=== PATIENT | male | born 2000 | race African-American/Black ===

== ENCOUNTER 2022-08-19 10:55 | Inpatient (IN) | payer OTHER ==
[~2022-08-19] VITALS: Ht 172.7 cm; Wt 75.0 kg
[2022-08-19 11:54] LABS: HEMATOCRIT 46.2 % (42.0-52.0); HEMOGLOBIN 15.5 g/dl (13.5-17.5); MEAN CORPUSCULAR HEMOGLOBIN 28.2 pg (27.0-33.0); MEAN CORPUSCULAR HGB CONC 33.5 g/dl (32.0-36.5); PLATELET COUNT, AUTOMATED 144 10^3/uL (150-450)
[2022-08-19 11:56] LABS: WHITE BLOOD COUNT 3.2 10^3/uL (4.0-10.0)
[2022-08-19 12:19] LABS: ETHYL ALCOHOL (ETHANOL) 0.005 % (0.000-0.010)
[2022-08-19 12:20] LABS: ACETAMINOPHEN LEVEL < 2.0 UG/ML (10.0-20.0); BLOOD UREA NITROGEN 8 MG/DL (9-23); CALCIUM LEVEL 9.5 MG/DL (8.5-10.1); CARBON DIOXIDE LEVEL 28 MMOL/L (20-31); CHLORIDE LEVEL 103 MMOL/L (98-107); CREATININE FOR GFR 0.87 MG/DL (0.70-1.30); GLOMERULAR FILTRATION RATE > 60.0 (>60); GLUCOSE, FASTING 86 MG/DL (60-100); POTASSIUM SERUM 4.3 MMOL/L (3.5-5.1); SALICYLATE LEVEL < 3.0 MG/DL (<30); SODIUM LEVEL 139 MMOL/L (136-145)
[2022-08-19 13:03] LABS: ALBUMIN 4.4 G/DL (3.2-5.2); ALKALINE PHOSPHATASE 81 U/L (46-116); ALT/SGPT 16 U/L (7.0-40); AST/SGOT 26 U/L (<34); BILIRUBIN,DIRECT 0.2 MG/DL (<0.4); BILIRUBIN,TOTAL 0.6 MG/DL (0.3-1.2); TOTAL PROTEIN 7.4 G/DL (5.7-8.2)
[2022-08-19 14:21] LABS: AMPHETAMINES LEVEL URINE NEGATIVE (NEGATIVE); BARBITURATES URINE NEGATIVE (NEGATIVE); BENZODIAZEPINES URINE NEGATIVE (NEGATIVE); CANNABINOIDS URINE NEGATIVE (NEGATIVE); COCAINE METABOLITE URINE NEGATIVE (NEGATIVE); METHADONE URINE NEGATIVE (NEGATIVE); OPIATES URINE NEGATIVE (NEGATIVE); PHENCYCLIDINE URINE NEGATIVE (NEGATIVE)
[2022-08-19] MEDS ORDERED: HOME MED LIST COMPLETE! XX SCH (14:25)
[2022-08-19] MEDS ORDERED: NICOTINE 21MG/24HR 1 EA TRANSDERMAL TD ONE (18:10)
[2022-08-20] MEDS: NICOTINE 21MG/24HR 1 EA TRANSDERMAL TD SCH (09:00)
[2022-08-20] MEDS ORDERED: traZODone 50 MG TAB PO PRN (11:05)
[2022-08-20] MEDS ORDERED: IBUPROFEN 400MG TAB PO PRN (11:05)
[2022-08-20] MEDS ORDERED: MAALOX 30 ML SUSP *UDC PO PRN (11:05)
[2022-08-20] MEDS ORDERED: MOM 30ML SUSPENSION UDC PO PRN (11:05)
[2022-08-20 14:33] VITALS: BP 118/75
[2022-08-21 06:29] VITALS: BP 129/61
[2022-08-21] MEDS: NICOTINE 21MG/24HR 1 EA TRANSDERMAL TD SCH ×2 (09:00→14:35)
[2022-08-21] MEDS ORDERED: lamoTRIgine 25MG TAB PO ONE (14:35)
[2022-08-21 17:38] VITALS: BP 125/78
[2022-08-22 06:37] VITALS: BP 128/61
[2022-08-22] MEDS: NICOTINE 21MG/24HR 1 EA TRANSDERMAL TD SCH (09:09)
[2022-08-22] MEDS: lamoTRIgine 25MG TAB PO SCH (09:09)
[2022-08-22] MEDS ORDERED: HYDR-3363 PO (12:12)
[2022-08-22] MEDS ORDERED: NICO21PAT TD (12:12)
[2022-08-22] MEDS ORDERED: LAMI25TA PO (12:12)
[2022-08-22] MEDS ORDERED: TRAZ-252 PO (12:12)
[2022-08-22 18:17] VITALS: BP 152/72
[2022-08-23 06:43] VITALS: BP 136/64
[2022-08-23] MEDS: NICOTINE 21MG/24HR 1 EA TRANSDERMAL TD SCH (09:00)
[2022-08-23] MEDS: lamoTRIgine 25MG TAB PO SCH (09:08)
== END 2022-08-23 13:05 | disposition home or self-care (01) | DRG 885 ==
LOC: EDBD 10:55 → M ED 10:55 → M ED INP 08-20 11:04 → M PSY 08-20 15:18
PROVIDERS: ADMIT Student in an Organized Health Care Education/Training Program; ATTEND Psychiatry & Neurology Psychiatry
DX: F31.81 Bipolar II disorder (principal); R45.851 Suicidal ideations; F10.10 Alcohol abuse, uncomplicated; F41.9 Anxiety disorder, unspecified; Z81.8 Family history of other mental and behavioral disorders; Z91.51 Personal history of suicidal behavior

== ENCOUNTER 2023-06-18 13:48 | Inpatient (IN) | payer OTHER ==
[~2023-06-18] VITALS: Ht 172.7 cm; Wt 77.3 kg
[~2023-06-18 13:48] MED LIST: HYDR-3363 PO; LAMI25TA PO; NICO21PAT TD; TRAZ-252 PO
[2023-06-18 15:23] LABS: HEMATOCRIT 46.6 % (42.0-52.0); HEMOGLOBIN 15.9 g/dl (13.5-17.5); MEAN CORPUSCULAR HEMOGLOBIN 28.2 pg (27.0-33.0); MEAN CORPUSCULAR HGB CONC 34.1 g/dl (32.0-36.5); MEAN CORPUSCULAR VOLUME 82.6 fl (80.0-96.0); PLATELET COUNT, AUTOMATED 147 10^3/uL (150-450); RED BLOOD COUNT 5.64 10^6/uL (4.30-6.10); WHITE BLOOD COUNT 3.3 10^3/uL (4.0-10.0)
[2023-06-18 15:42] LABS: ETHYL ALCOHOL (ETHANOL) < 0.003 % (0.000-0.010)
[2023-06-18 15:43] LABS: SALICYLATE LEVEL < 3.0 MG/DL (<30)
[2023-06-18 15:43] LABS: AMPHETAMINES LEVEL URINE NEGATIVE (NEGATIVE); BARBITURATES URINE NEGATIVE (NEGATIVE); BENZODIAZEPINES URINE NEGATIVE (NEGATIVE); CANNABINOIDS URINE NEGATIVE (NEGATIVE); COCAINE METABOLITE URINE NEGATIVE (NEGATIVE); METHADONE URINE NEGATIVE (NEGATIVE); OPIATES URINE NEGATIVE (NEGATIVE); PHENCYCLIDINE URINE NEGATIVE (NEGATIVE)
[2023-06-18 15:44] LABS: ALBUMIN 4.7 G/DL (3.2-5.2); ALKALINE PHOSPHATASE 90 U/L (46-116); ALT/SGPT 20 U/L (7.0-40); AST/SGOT 21 U/L (<34); BILIRUBIN,DIRECT 0.2 MG/DL (<0.4); BILIRUBIN,TOTAL 0.5 MG/DL (0.3-1.2); BLOOD UREA NITROGEN 16 MG/DL (9-23); CALCIUM LEVEL 9.7 MG/DL (8.5-10.1); CARBON DIOXIDE LEVEL 29 MMOL/L (20-31); CHLORIDE LEVEL 104 MMOL/L (98-107); CREATININE FOR GFR 1.02 MG/DL (0.70-1.30); GLOMERULAR FILTRATION RATE > 60.0 (>60); GLUCOSE, FASTING 76 MG/DL (60-100); SODIUM LEVEL 139 MMOL/L (136-145); TOTAL PROTEIN 7.8 G/DL (5.7-8.2)
[2023-06-18 15:46] LABS: THYROID STIMULATING HORMONE 0.432 uIU/ML (0.55-4.78)
[2023-06-18] MEDS ORDERED: MED REC IN PROGRESS XX SCH (16:20)
[2023-06-18] MEDS ORDERED: ACETAMINOPHEN TAB 650MG DOSE (2X325MG) PO PRN (16:30)
[2023-06-18] MEDS ORDERED: diphenhydrAMINE 25MG CAP PO PRN (16:30)
[2023-06-18] MEDS ORDERED: MAALOX 30 ML SUSP *UDC PO PRN (16:30)
[2023-06-18] MEDS ORDERED: traZODone 50 MG TAB PO PRN (16:30)
[2023-06-18] MEDS ORDERED: IBUPROFEN 400MG TAB PO PRN (16:30)
[2023-06-18] MEDS ORDERED: MOM 30ML SUSPENSION UDC PO PRN (16:30)
[2023-06-18] MEDS ORDERED: NALT50TA4 PO (16:33)
[2023-06-18] MEDS ORDERED: HOME MED LIST COMPLETE! XX SCH (16:40)
[2023-06-18 22:15] VITALS: BP 112/86; TEMP 97.9; O2SAT 98
[2023-06-19 06:28] VITALS: BP 137/84; TEMP 98.2; O2SAT 96
[2023-06-19 17:10] VITALS: BP 110/70; TEMP 98.2; O2SAT 98
[2023-06-19] MEDS: NICOTINE 21MG/24HR 1 EA TRANSDERMAL TD PRN (18:50)
[2023-06-20 06:38] VITALS: BP 124/77; TEMP 97.9
[2023-06-20 16:32] VITALS: BP 129/76; TEMP 97.3; O2SAT 100
[2023-06-21 06:37] VITALS: BP 134/78; TEMP 97.1; O2SAT 99
[2023-06-21 15:58] VITALS: BP_SYST 112; BP_SYST 118; BP_DIAS 69; TEMP 97.8; TEMP 97.9; O2SAT 100; O2SAT 99
[2023-06-22 06:40] VITALS: BP 143/73; TEMP 97.8; O2SAT 99
[2023-06-22] MEDS: NICOTINE 21MG/24HR 1 EA TRANSDERMAL TD PRN (12:30)
[2023-06-22 15:30] VITALS: BP 138/76; TEMP 97.5; O2SAT 100
[2023-06-23 06:48] VITALS: BP 128/68; TEMP 97.6; O2SAT 99
== END 2023-06-23 10:55 | disposition home or self-care (01) | DRG 881 ==
LOC: M ED 13:48 → M ED INP 16:27 → M PSY 21:23
PROVIDERS: ADMIT Student in an Organized Health Care Education/Training Program; ATTEND Student in an Organized Health Care Education/Training Program
DX: F32.A Depression, unspecified (principal); R45.851 Suicidal ideations; F41.9 Anxiety disorder, unspecified; F10.10 Alcohol abuse, uncomplicated; F17.200 Nicotine dependence, unspecified, uncomplicated; Z71.6 Tobacco abuse counseling; Z79.899 Other long term (current) drug therapy; Z20.822 Contact with and (suspected) exposure to COVID-19; Z91.51 Personal history of suicidal behavior; Z91.52 Personal history of nonsuicidal self-harm; Z83.3 Family history of diabetes mellitus; Z81.8 Family history of other mental and behavioral disorders

== ENCOUNTER → 2023-10-27 | Outpatient (REF) | payer OTHER ==
[~2023-10-27] MED LIST changes: +NALT50TA4 PO
== END ==
LOC: M PLAIMG 09:19 → EDSTATUS 10:05 → M PLAIMG 10:06
PROVIDERS: ATTEND Internal Medicine
DX: R06.02 Shortness of breath (principal)